=== PATIENT | female | born 1970 ===

== ENCOUNTER → 2017-08-10 | Outpatient (REF) ==
[2017-08-10 11:44] LABS: HIV 1/2 Antibodies Non-Reactive; HIV-1p24 Antigen Non-Reactive
[2017-08-11 00:01] LABS: HEPATITIS B SURFACE ANTIGEN Negative (()); HEPATITIS C VIRUS ANTIBODY Negative (())
== END ==
LOC: ZMSC 11:09
PROVIDERS: Obstetrics & Gynecology
DX: Z01.89 Encounter for other specified special examinations (principal)